=== PATIENT | female | born 2005 | race Caucasian/White ===

== ENCOUNTER 2024-07-05 23:12 | Emergency (ER) | payer OTHER ==
[~2024-07-05] VITALS: Ht 162.6 cm; Wt 43.0 kg
[2024-07-05 23:23] VITALS: O2SAT 100
[2024-07-05] MEDS ORDERED: KETOROLAC 15MG/ML VIAL IM ONE (23:45)
[2024-07-06] MEDS: ACETAMINOPHEN 325MG TABLET PO ONE (00:20)
[2024-07-06] MEDS ORDERED: NAPR-1176 MT (00:36)
[2024-07-06 01:20] VITALS: BP 112/67; PULSE 89; RESP 16; TEMP 36.94740; O2SAT 100
== END 2024-07-06 01:37 | disposition home or self-care (01) ==
LOC: ER 23:12
DX: S00.83XA Contusion of other part of head, initial encounter (principal); Z88.1 Allergy status to other antibiotic agents; Z79.1 Long term (current) use of non-steroidal anti-inflammatories (NSAID); Y04.0XXA Assault by unarmed brawl or fight, initial encounter; Y93.01 Activity, walking, marching and hiking; Y92.89 Other specified places as the place of occurrence of the external cause; Y99.8 Other external cause status
CPT/HCPCS: 99282